=== PATIENT | male | born 1985 | race Caucasian/White ===

== ENCOUNTER 2017-05-22 04:00 | Observation (INO) | payer OTHER ==
[~2017-05-22 04:00] MED LIST: MORPHINE SULFATE 4 MG/ML INJ IV PUSH PRN; SODIUM CHLORIDE 0.9% FLUSH 10 ML FLUSH IV FLUSH PRN
[2017-05-22 04:36] VITALS: BP 143/75; PULSE 105; RESP 20; TEMP 100.4; O2SAT 100
--- NOTE | 2017-05-22 04:43 | HHI.HP ---
HPI Service General Surgery Primary Care Physician Unknown Admission Diagnosis Acute appendicitis Chief Complaint: abdominal pain History of Present Illness 32-year-old male presents with complaints of right lower quadrant abdominal pain for the last 3 days. Since yesterday he has been unable to tolerate oral intake. Last night he started having a lot of nausea and vomiting. He has had chills. Presented to the emergency department in [place] was noted to have right lower quadrant tenderness and a white blood count of 19,000. CT of the abdomen and pelvis is consistent with acute appendicitis. Review of Systems Constitutional: COMPLAINS OF: Chills, DENIES: Fever Eyes: DENIES: Eye inflammation, Eye pain Respiratory: DENIES: Cough, Snoring Cardiovascular: DENIES: Chest pain, Palpitations Gastrointestinal: COMPLAINS OF: Abdominal pain, Vomiting Musculoskeletal: DENIES: Back pain, Neck pain Neurologic: DENIES: Paresthesias, Seizures Past Family Social History Past Medical History None Past Surgical History None Reported Medications None Allergies: Coded Allergies: No Known Allergies (Unverified , 05/22/17) Active Ordered Medications Current Medications Medications (Trade) Dose Ordered Sig/Juan Miguel Route Start Time Stop Time Status Last Admin (NS Flush) 2 ml UNSCH PRN IV FLUSH 05/22/17 04:00 (NS Flush) 2 ml BID IV FLUSH 05/22/17 09:00 Piperacillin Sod/ Tazobactam Sod 50 ml @ 100 mls/hr Q6H IV 05/22/17 05:00 (Morphine Inj) 2 mg Q4H PRN IV PUSH 05/22/17 04:00 (Zofran Inj) 4 mg Q6H PRN IV PUSH 05/22/17 04:00 Potassium Chloride/Dextrose/ Sod Cl 1,000 ml @ 100 mls/hr Q10H IV 05/22/17 03:49 Family History Noncontributory Social History Occasional alcohol use. No tobacco or drug use. Physical Exam Vital Signs See vital signs from [place] emergency department visit Physical Exam GENERAL: Awake and alert. Appears in pain. Cooperative. HEAD: Normocephalic. Atraumatic. EYES: Pupils equal round and reactive to light bilaterally. No scleral icterus. ENT: Moist oral mucosa. NECK: Trachea midline. CHEST: Lungs clear to auscultation bilaterally with no wheezing or rhonchi. No respiratory distress. CARDIOVASCULAR: Regular rate and rhythm. ABDOMEN: Mild distention. Soft. Rebound tenderness in the right lower abdomen and mid lower abdomen. EXTREMITIES: No cyanosis or edema. SKIN: Warm, dry, nonjaundiced. Laboratory White blood count 19,000 CT remaining labs from [place] emergency department visit Imaging CT images reviewed by me and consistent with acute appendicitis. See report from [place] emergency department visit. Caprini VTE Risk Assessment Caprini VTE Risk Assessment: No/Low Risk (score <= 1) Caprini Risk Assessment Model Point Value = 1 Point Value = 2 Point Value = 3 Point Value = 5 Age 41-60 Minor surgery BMI > 25 kg/m2 Swollen legs Varicose veins or History of unexplained or recurrent spontaneous Oral contraceptives or hormone replacement Sepsis (< 1 month) Serious lung disease, including pneumonia (< 1 month) Abnormal pulmonary function Acute myocardial infarction Congestive heart failure (< 1 month) History of inflammatory bowel disease Medical patient at bed rest Age 61-74 Arthroscopic surgery Major open surgery (> 45 min) Laparoscopic surgery (> 45 min) Malignancy Confined to bed (> 72 hours) Immobilizing plaster cast Central venous access Age >= 75 History of VTE Family history of VTE Factor V Leiden Prothrombin [id number] Lupus anticoagulant Anticardiolipin antibodies Elevated serum homocysteine Heparin-induced thrombocytopenia Other congenital or acquired thrombophilia Stroke (< 1 month) Elective arthroplasty Hip, pelvis, or leg fracture Acute spinal cord injury (< 1 month) Prophylaxis Regimen Total Risk Factor Score Risk Level Prophylaxis Regimen 0-1 Low Early ambulation 2 Moderate Order ONE of the following: *Sequential Compression Device (SCD) *Heparin 5000 units SQ BID 3-4 Higher Order ONE of the following medications: *Heparin 5000 units SQ TID *Enoxaparin/Lovenox 40 mg SQ daily (WT < 150 kg, CrCl > 30 mL/min) *Enoxaparin/Lovenox 30 mg SQ daily (WT < 150 kg, CrCl > 10-29 mL/min) *Enoxaparin/Lovenox 30 mg SQ BID (WT < 150 kg, CrCl > 30 mL/min) AND/OR *Sequential Compression Device (SCD) 5 or more Highest Order ONE of the following medications: *Heparin 5000 units SQ TID (Preferred with Epidurals) *Enoxaparin/Lovenox 40 mg SQ daily (WT < 150 kg, CrCl > 30 mL/min) *Enoxaparin/Lovenox 30 mg SQ daily (WT < 150 kg, CrCl > 10-29 mL/min) *Enoxaparin/Lovenox 30 mg SQ BID (WT < 150 kg, CrCl > 30 mL/min) AND *Sequential Compression Device (SCD) Assessment and Plan Assessment and Plan 32-year-old male with an evaluation consistent with acute appendicitis. It may be fairly advanced this is been going on for over 3 days and there is a lot of inflammation on CT scan. Recommend to proceed with laparoscopic possible open appendectomy this morning. Discussed the risks and details of the procedure with the patient and his family and he desires to proceed. Bigg Gross MD May 22, 2017 04:43
[2017-05-22] MEDS: PIPERACIL-TAZO 3.375 GM PREMIX 50 ML IV SCH ×4 (05:00→22:41)
[2017-05-22] MEDS: D5-1/2 NS + KCL 20 MEQ INJ 1,000 ML IV SCH ×3 (05:04→21:45)
[2017-05-22] MEDS: MORPHINE SULFATE 4 MG/ML INJ IV PUSH PRN ×3 (05:18→22:09)
[2017-05-22] MEDS: ONDANSETRON HCL 4 MG/2 ML VIAL IV PUSH PRN (05:18)
[2017-05-22] MEDS ORDERED: LACTATED RINGER'S 1000 ML IV PRN (05:45)
[2017-05-22] MEDS ORDERED: POVIDONE IODINE 5% (ANTISEPSIS KIT) 4 APPLICATIONS EACH NARE PRN (05:45)
[2017-05-22] MEDS ORDERED: SODIUM CHLORID 0.9% 500 ML IV PRN (05:45)
[2017-05-22] MEDS ORDERED: METOPROLOL TARTRATE 25 MG TAB PO PRN (05:45)
[2017-05-22] MEDS ORDERED: CHLORHEXIDINE GLUCONATE 2 % 1 PACK (2 CLOTHS) TOPICAL PRN (05:45)
[2017-05-22 07:45] VITALS: BP 126/70; PULSE 120; RESP 18; TEMP 100.4; O2SAT 91
[2017-05-22] MEDS ORDERED: MORPHINE SULFATE 4 MG/ML INJ IV PUSH PRN (08:00)
[2017-05-22] MEDS ORDERED: ACETAMINOPHEN 1000 MG/100 ML 100 ML IV ONE ×2 (08:23→08:30)
[2017-05-22] MEDS ORDERED: FAMOTIDINE 20 MG/2 ML VIAL ONE (08:23)
[2017-05-22] MEDS ORDERED: SUGAMMADEX SODIUM 200 MG/2 ML VIAL IV PUSH ONE (08:29)
[2017-05-22] MEDS ORDERED: FAMOTIDINE 20 MG/2 ML VIAL IV ONE (08:30)
[2017-05-22] MEDS ORDERED: BUPIVACAINE/EPINEPHRINE 0.25% 50 ML VIAL ONE (08:48)
[2017-05-22] MEDS: SODIUM CHLORIDE 0.9% FLUSH 10 ML FLUSH IV FLUSH SCH ×2 (09:00→19:27)
[2017-05-22] MEDS ORDERED: MORPHINE SULFATE 2 MG/ML INJ IV PUSH PRN (10:30)
--- NOTE | 2017-05-22 10:38 | PD.OP ---
cc: Bigg Gross MD Operative Report Date of Surgery: May 22, 2017 Preoperative Diagnosis: (1) Acute appendicitis Postoperative Diagnosis: (1) Appendicitis, acute, with peritonitis Procedure: Laparoscopic appendectomy with washout and drain placement Anesthesia: KAMERONA Surgeon: Bigg Gross Blower Operator(s): Anam Fair CFA Operation and Findings: EBL: 5 cc Complications: None apparent Operative findings: There was purulent fluid in the entire right abdomen and pelvis in the right upper quadrant with peritonitis. There was pus in between loops of bowel in the lower abdomen and adhering the omentum to the right lower quadrant structures. The appendix was dilated and inflamed with an associated firm mass. There was perforation in the more proximal appendix but not all the way at the base. Procedure in detail: The patient was taken to the operating room placed in the supine position with left arm tucked. General endotracheal anesthesia was induced and the abdomen was prepped and draped in usual sterile fashion. Surgical timeout was performed to verify correct patient procedure and site. Perioperative antibiotics were administered as necessary. Local anesthetic was injected in the skin and subcutaneous tissue at the superior umbilicus and a 5 mm incision made. Using the 5 mm Optiview trocar with laparoscope the abdomen was directly entered. Was then insufflated to 15 mmHg with CO2 gas which the patient tolerated well. The patient was then placed in Trendelenburg position and turned slightly to the left. There is significant inflammation in the right lower quadrant and the pelvis with inflammation of the bladder small intestines omentum cecum. The 12 mm port was placed in the left lower abdomen rather than suprapubic due to the amount of inflammation there. 5 mm port placed in the left midabdomen. Purulent fluid and adhesions between the small bowel were bluntly carefully . The omentum was elevated cephalad. There was a lot of purulent fluid in the right lower abdomen and right paracolic gutter. The appendix was dilated and inflamed with an associated firm mass 2 or 3 cm in diameter. There was a large perforation in the proximal appendix but not at the base. The mesoappendix was taken down with the Harmonic scalpel. The base of the appendix was somewhat thickened but overall healthy. A white load Orcutt Laparoscopic stapler was applied at the base of the appendix. In addition, Two #1 PDS Endoloops were placed at the base the appendix. It was then removed using an Endo Catch bag. The appendiceal stump was intact with no leakage. The abdomen was copiously irrigated with 3 L of normal saline. A 19 Ug[place]an round Chintan drain was placed through the left mid abdominal port site in position in the right lower quadrant and the pelvis. The fascia at the 12 mm port site was closed with 0 Vicryl sutures. The wound was irrigated. Skin closed with subcuticular Monocryl as well as Dermabond. The patient tolerated the procedure well was extubated and taken to PACU in stable condition. Bigg Gross MD May 22, 2017 10:38
[2017-05-22] MEDS ORDERED: DO NOT ADM ANY ANTICOAGULANT DRUGS PRN (10:45)
[2017-05-22] MEDS ORDERED: KETOROLAC TROMETHAMINE 30 MG/ML (IVP) VIAL IV PUSH ONE (12:00)
[2017-05-22] MEDS ORDERED: LACTATED RINGER'S 1000 ML INJ 1,000 ML IV ONE (12:00)
[2017-05-22] MEDS ORDERED: PROPOFOL 200 MG/20 ML AMP IV ONE (12:00)
[2017-05-22] MEDS ORDERED: LIDOCAINE HCL 1% PF 5 ML SYRINGE OTHER ONE (12:00)
[2017-05-22] MEDS ORDERED: ROCURONIUM INJ 50 MG/5 ML SYRINGE IV PUSH ONE (12:00)
[2017-05-22] MEDS ORDERED: DEXAMETHASONE SOD PHOS 4 MG/ML VIAL IV ONE (12:00)
[2017-05-22] MEDS ORDERED: ONDANSETRON HCL 4 MG/2 ML VIAL IV ONE (12:00)
[2017-05-22 16:00] VITALS: BP 109/55; PULSE 94; RESP 16; RESP 24; TEMP 98.6; O2SAT 95
[2017-05-22 20:00] VITALS: BP 111/56; PULSE 89; RESP 20; TEMP 99.3; O2SAT 94
[2017-05-23 00:21] VITALS: BP 109/68; PULSE 92; RESP 19; TEMP 97.3; O2SAT 93
[2017-05-23] MEDS: KETOROLAC TROMETHAMINE 30 MG/ML (IVP) VIAL IV PUSH SCH ×4 (04:38→20:55)
[2017-05-23] MEDS: PIPERACIL-TAZO 3.375 GM PREMIX 50 ML IV SCH ×4 (04:38→22:49)
[2017-05-23 08:00] VITALS: BP 99/54; PULSE 80; RESP 18; TEMP 97.4; O2SAT 94
[2017-05-23] MEDS: SODIUM CHLORIDE 0.9% FLUSH 10 ML FLUSH IV FLUSH SCH ×2 (08:59→19:32)
[2017-05-23] MEDS: D5-1/2 NS + KCL 20 MEQ INJ 1,000 ML IV SCH ×2 (08:59→16:54)
[2017-05-23 09:03] LABS: AUTOMATED NEUTROPHIL # 14.4 TH/MM3 (1.8-7.7); BASOPHIL % 0.1 % (0.0-2.0); HEMATOCRIT 38.2 % (39.0-51.0); HEMOGLOBIN 12.8 GM/DL (13.0-17.0); LYMPH % 7.8 % (9.0-44.0); LYMPHOCYTE # 1.3 TH/MM3 (1.0-4.8); MEAN CELL VOLUME 84.9 FL (80.0-100.0); MEAN CORPUSCULAR HEMOGLOBIN 28.5 PG (27.0-34.0); MEAN CORPUSCULAR HGB CONC 33.6 % (32.0-36.0); MEAN PLATELET VOLUME 7.3 FL (7.0-11.0); MONOCYTE # 1.4 TH/MM3 (0-0.9); NEUT % 84.1 % (16.0-70.0); PLATELET COUNT 278 TH/MM3 (150-450); WHITE BLOOD COUNT 17.1 TH/MM3 (4.0-11.0)
[2017-05-23 09:28] LABS: BICARBONATE 27.8 MEQ/L (21.0-32.0); CALCIUM 8.8 MG/DL (8.5-10.1); CREATININE 1.42 MG/DL (0.60-1.30)
[2017-05-23 10:06] VITALS: O2SAT 94
[2017-05-23 12:00] VITALS: BP 116/74; PULSE 78; RESP 17; TEMP 99; O2SAT 96
[2017-05-23 16:00] VITALS: BP 126/71; PULSE 94; RESP 16; TEMP 100.6; O2SAT 99
[2017-05-23] MEDS ORDERED: guaiFENesin E.R. 600 MG TAB PO PRN (16:15)
[2017-05-23] MEDS ORDERED: ACETAMINOPHEN 325 MG TAB PO PRN (16:15)
[2017-05-23 20:00] VITALS: BP 133/74; PULSE 90; RESP 21; TEMP 97.2; O2SAT 98
[2017-05-23] MEDS: ONDANSETRON HCL 4 MG/2 ML VIAL IV PUSH PRN (20:55)
[2017-05-24] VITALS: BP 148/77; PULSE 82; RESP 21; TEMP 97.2; O2SAT 97
[2017-05-24] MEDS: MORPHINE SULFATE 4 MG/ML INJ IV PUSH PRN ×3 (00:10→11:54)
[2017-05-24] MEDS: D5-1/2 NS + KCL 20 MEQ INJ 1,000 ML IV SCH ×2 (02:36→08:41)
[2017-05-24] MEDS: KETOROLAC TROMETHAMINE 30 MG/ML (IVP) VIAL IV PUSH SCH ×4 (03:31→21:18)
[2017-05-24 04:00] VITALS: BP 131/83; PULSE 84; RESP 20; TEMP 97.6; O2SAT 93
[2017-05-24] MEDS: PIPERACIL-TAZO 3.375 GM PREMIX 50 ML IV SCH ×4 (04:28→22:47)
[2017-05-24 07:03] LABS: AUTOMATED NEUTROPHIL # 10.9 TH/MM3 (1.8-7.7); BASOPHIL % 0.2 % (0.0-2.0); EOSINOPHIL # 0.1 TH/MM3 (0-0.4); EOSINOPHIL % 0.8 % (0.0-4.0); HEMATOCRIT 35.5 % (39.0-51.0); HEMOGLOBIN 12.1 GM/DL (13.0-17.0); LYMPH % 12.1 % (9.0-44.0); LYMPHOCYTE # 1.7 TH/MM3 (1.0-4.8); MEAN CELL VOLUME 85.3 FL (80.0-100.0); MEAN CORPUSCULAR HEMOGLOBIN 28.9 PG (27.0-34.0); MEAN CORPUSCULAR HGB CONC 33.9 % (32.0-36.0); MEAN PLATELET VOLUME 7.6 FL (7.0-11.0); MONO % 10.2 % (0.0-8.0); MONOCYTE # 1.4 TH/MM3 (0-0.9); NEUT % 76.7 % (16.0-70.0); PLATELET COUNT 279 TH/MM3 (150-450); RED BLOOD COUNT 4.17 MIL/MM3 (4.50-5.90); RED CELL DISTRIBUTION WIDTH 13.2 % (11.6-17.2); WHITE BLOOD COUNT 14.2 TH/MM3 (4.0-11.0)
[2017-05-24 07:26] LABS: BICARBONATE 26.8 MEQ/L (21.0-32.0); CALCIUM 8.6 MG/DL (8.5-10.1); CREATININE 1.29 MG/DL (0.60-1.30)
[2017-05-24 08:00] VITALS: BP 129/85; PULSE 80; RESP 17; TEMP 98.6; O2SAT 92
[2017-05-24] MEDS: SODIUM CHLORIDE 0.9% FLUSH 10 ML FLUSH IV FLUSH SCH ×2 (08:39→19:46)
--- NOTE | 2017-05-24 11:28 | HHI.PR ---
Subjective Subjective Notes pt comfortable pos bm Objective Vitals/I&O Vital Signs Date Time Temp Pulse Resp B/P (MAP) Pulse Ox O2 Delivery O2 Flow Rate FiO2 05/24/17 08:00 98.6 80 17 129/85 (100) 92 05/22/17 14:30 Room Air 05/22/17 13:00 2 Labs Laboratory Tests Test 05/24/17 06:23 White Blood Count 14.2 Red Blood Count 4.17 Hemoglobin 12.1 Hematocrit 35.5 Mean Corpuscular Volume 85.3 Mean Corpuscular Hemoglobin 28.9 Mean Corpuscular Hemoglobin Concent 33.9 Red Cell Distribution Width 13.2 Platelet Count 279 Mean Platelet Volume 7.6 Neutrophils (%) (Auto) 76.7 Lymphocytes (%) (Auto) 12.1 Monocytes (%) (Auto) 10.2 Eosinophils (%) (Auto) 0.8 Basophils (%) (Auto) 0.2 Neutrophils # (Auto) 10.9 Lymphocytes # (Auto) 1.7 Monocytes # (Auto) 1.4 Eosinophils # (Auto) 0.1 Basophils # (Auto) 0.0 CBC Comment DIFF FINAL Differential Comment Blood Urea Nitrogen 19 Creatinine 1.29 Random Glucose 107 Calcium Level 8.6 Sodium Level 136 Potassium Level 3.7 Chloride Level 102 Carbon Dioxide Level 26.8 Anion Gap 7 Estimat Glomerular Filtration Rate [address] images reviewed by me and consistent with acute appendicitis. See report from [place] emergency department visit. Abdomen: Post-op tenderness Extremities: Perfused Narrative Exam mariely serosang Wound Wound : Wound Location: Abdomen Appearance: Clean & Dry A/P Assessment and Plan s/p lap appy doing well advance diet if remain afeb d/c in am Emerson Moss MD May 24, 2017 11:28
[2017-05-24 12:00] VITALS: BP 124/78; PULSE 78; RESP 16; TEMP 97.6; O2SAT 95
[2017-05-24 16:00] VITALS: BP 136/76; PULSE 88; RESP 18; TEMP 100.1; O2SAT 96
[2017-05-24 20:00] VITALS: BP 125/84; PULSE 83; RESP 21; TEMP 99.3; O2SAT 96
[2017-05-25] VITALS: BP 139/81; PULSE 73; RESP 20; TEMP 99.6; O2SAT 96
[2017-05-25] MEDS: PIPERACIL-TAZO 3.375 GM PREMIX 50 ML IV SCH ×2 (03:48→12:29)
[2017-05-25] MEDS: KETOROLAC TROMETHAMINE 30 MG/ML (IVP) VIAL IV PUSH SCH ×2 (03:48→09:38)
[2017-05-25 08:00] VITALS: BP 144/85; PULSE 67; RESP 18; TEMP 97.8; O2SAT 95
[2017-05-25] MEDS: SODIUM CHLORIDE 0.9% FLUSH 10 ML FLUSH IV FLUSH SCH (09:38)
[2017-05-25] MEDS ORDERED: METR1TAB76 PO (11:17)
[2017-05-25] MEDS ORDERED: HYDR-3516 PO (11:17)
[2017-05-25] MEDS ORDERED: LEVO750T3 PO (11:17)
--- NOTE | 2017-05-25 11:19 | HHI.DS ---
Discharge Summary Admission Date May 22, 2017 at 04:10 Discharge Date: May 25, 2017 Admitting Diagnosis (1) Appendicitis, acute, with peritonitis ICD Codes: K35.3 - Acute appendicitis with localized peritonitis Brief History 32-year-old male presents with complaints of right lower quadrant abdominal pain for the last 3 days. Since yesterday he has been unable to tolerate oral intake. Last night he started having a lot of nausea and vomiting. He has had chills. Presented to the emergency department in [place] was noted to have right lower quadrant tenderness and a white blood count of 19,000. CT of the abdomen and pelvis is consistent with acute appendicitis. CBC/BMP: 05/24/17 0623 05/24/17 0623 Significant Findings Laboratory Tests Test 05/23/17 08:42 05/24/17 06:23 White Blood Count 17.1 TH/MM3 (4.0-11.0) 14.2 TH/MM3 (4.0-11.0) Hemoglobin 12.8 GM/DL (13.0-17.0) 12.1 GM/DL (13.0-17.0) Hematocrit 38.2 % (39.0-51.0) 35.5 % (39.0-51.0) Neutrophils (%) (Auto) 84.1 % (16.0-70.0) 76.7 % (16.0-70.0) Lymphocytes (%) (Auto) 7.8 % (9.0-44.0) Neutrophils # (Auto) 14.4 TH/MM3 (1.8-7.7) 10.9 TH/MM3 (1.8-7.7) Monocytes # (Auto) 1.4 TH/MM3 (0-0.9) 1.4 TH/MM3 (0-0.9) Blood Urea Nitrogen 19 MG/DL (7-18) 19 MG/DL (7-18) Creatinine 1.42 MG/DL (0.60-1.30) Random Glucose 115 MG/DL (74-106) 107 MG/DL (74-106) Estimat Glomerular Filtration Rate 57 ML/MIN (>89) 64 ML/MIN (>89) Red Blood Count 4.17 MIL/MM3 (4.50-5.90) Monocytes (%) (Auto) 10.2 % (0.0-8.0) PE at Discharge Abd soft, ntd, inc c/d/i, MARIA ESTHER serosanguinous Hospital Course Mr. Mehta had perforated appendicits with perotinitis. Post op he tolerated clears and then regular diet and had multiple bowel movts. Had intermittent elevated temps, none for about 24 hrs. Pain controlled last 24h with toradol only. Pt Condition on Discharge: Good Discharge Disposition: Discharge Home Discharge Instructions DIET: Follow Instructions for: As Tolerated, No Restrictions Activities you can perform: See Additionl Instruction Other Activity Instructions: Ok to shower. Empy and record MARIA ESTHER drain. Avoid heavy lifitng. Follow up Referrals: Surgical - 05/28/17 with Bigg Gross MD New Medications: Hydrocodone-Acetaminophen (Hydrocodone-Acetaminophen) 5-325 mg Tab 1 TAB PO Q4H PRN for PAIN, #15 TAB 0 Refills Levofloxacin (Levofloxacin) 750 Mg Tablet 750 MG PO DAILY for Infection, #5 TAB 0 Refills Metronidazole (Metronidazole) 500 Mg Tab 500 MG PO TID for Infection, #15 TAB 0 Refills Bigg Gross MD May 25, 2017 11:19
== END 2017-05-25 14:48 | disposition home or self-care (01) ==
LOC: NEDDLT 04:00 → NEPGCP 04:10 → N07B 07:53 → N07A 14:51
PROVIDERS: ADMIT Surgery; ATTEND Surgery
DX: K35.3 Acute appendicitis with localized peritonitis (principal)
CPT/HCPCS: 74177; 80048; 80053; 81001; 83690; 85025; 88304; 96361; 96365; 96366; 96374; 96375; 96376; G0378; J0131; J1100; J1885; J2270; J2405; J2543; J3010; J3480; J7030; J7120; Q9967